=== PATIENT | female | born 1975 | race Two or more races ===

== ENCOUNTER 2021-02-21 | Outpatient (CLI) | payer OTHER ==
[~2021-02-21] MED LIST: CIPRO500 MG; TORADOL10 MG
== END 2021-02-21 16:45 | disposition home or self-care (01) ==
LOC: PPH VACUNA
DX: Z23 Encounter for immunization (principal)

== ENCOUNTER → 2021-11-27 08:05 | Outpatient (CLI) | payer OTHER | END | disposition home or self-care (01) | LOC: LAB 08:05 | PROVIDERS: ATTEND Dentist Oral and Maxillofacial Surgery | DX: Z20.828 Contact with and (suspected) exposure to other viral communicable diseases (principal) ==

== ENCOUNTER 2021-11-28 06:18 | Day surgery (SDC) | payer OTHER | END 2021-11-28 16:30 | disposition home or self-care (01) | LOC: CIR.AMB 06:18 | PROVIDERS: ATTEND Surgery | DX: K62.5 Hemorrhage of anus and rectum (principal); K64.2 Third degree hemorrhoids; I10 Essential (primary) hypertension; E78.5 Hyperlipidemia, unspecified ==